=== PATIENT | male | born 1960 | race Caucasian/White ===

== ENCOUNTER 2019-05-22 05:34 | Inpatient (IN) | payer OTHER ==
[2019-05-09 13:04] LABS: HEMATOCRIT 37.7 % (42.0-52.0); HEMOGLOBIN 12.4 gm/dL (14.0-18.0); MCH 28.6 pg (26.0-34.0); MCHC 32.8 g/dL (28.0-37.0); RBC 4.33 mil/uL (4.50-6.00); RDW 14.2 % (10.5-14.5); WBC 6.1 thou/uL (4.0-11.0)
[2019-05-09 13:09] LABS: URINE BILIRUBIN NEGATIVE (Negative); URINE BLOOD NEGATIVE (Negative); URINE CLARITY CLEAR; URINE COLOR YELLOW; URINE GLUCOSE-RANDOM* NEGATIVE (Negative); URINE KETONES NEGATIVE (Negative); URINE LEUKOCYTES-REFLEX NEGATIVE (Negative); URINE NITRITE-REFLEX NEGATIVE (Negative); URINE PROTEIN (DIPSTICK) NEGATIVE (Negative); URINE SPECIFIC GRAVITY <= 1.005 (1.005-1.035); URINE UROBILINOGEN 0.2 E.U./dl (0.2-1.0)
[2019-05-09 13:14] LABS: CALCIUM 9.1 mg/dL (8.5-10.1); CREATININE 1.2 mg/dL (0.7-1.3)
[2019-05-09 13:20] LABS: PROTIME 10.4 Seconds (9.3-11.4)
--- NOTE | 2019-05-10 12:24 | EKG ---
[address] [place] [address] ELECTROCARDIOGRAM REPORT Name: DAVID BARRERA Room #: PRE IN .Janna#: [id number] Admission: Attend Phys: Porfirio Awad Discharge: Date of : 56 Report #: [id number] THIS REPORT FOR: //name// [facility] Test Date: 2019-05-09 Test Time: 13:02:25 Pat Name: DAVID BARRERA Department: Room: Gender: M Administrative Office Manager: kaylin oliva : 1960 Requested By: Porfirio Painter Order Number: [id number] MD: Uri Jackson Measurements Intervals [place] Rate: 62 P: 5 DC: 176 QRS: 12 QRSD: 78 T: 54 QT: 381 QTc: 387 Interpretive Statements Sinus rhythm Abnormal R-wave progression, early transition Nonspecific ST segment abnormalities Compared to ECG 06/13/2016 13:54:06 No significant change Electronically Signed On 05-10-2019 12:24:36 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
[~2019-05-22] VITALS: Ht 182.9 cm; Wt 68.5 kg
[~2019-05-22 05:34] MED LIST: BACLOFEN20 MG PO; CENTRUM SILVER1 EAC2 PO; FLONASE 0.05%50 MCG NASAL; HORIZANT600 MG PO; IBUPROFEN 200200 M1 PO; LASIX 20 MG TAB20 MG PO; LIORESAL 10 MG10 MG PO; LISINOPRIL20 MG PO; OMEGA 3 1,0001 EACH PO; PERCOCET PO; PROTONIX40 M1 PO; TRAMADOL 50 MG50 MG PO; VITAMIN B-12500 MC4 PO; VITAMIN C500 M2 PO; VITAMIN D31000 UNIT PO
[2019-05-22 06:30] VITALS: BP 124/69
[2019-05-22 11:00] VITALS: BP 136/86
--- NOTE | 2019-05-22 14:07 | NUR ---
58 YO TRANSFERED FROM PACU. A&OX4, IV INFILTRATED ON LEFT FA. R SHOULDER IS WITH POLAR PACK. BRACE IS INTACT. SCD'S IN PLACE. ORIENTED PT TO ROOM/CALL LIGHT. IV RESTARTED IN L FA BY MED SPA MANAGER SCOUT. DENIES PAIN AT THIS TIME AND IS SLEEPING NOW. WILL CONT POC.
[2019-05-22 17:51] VITALS: BP 148/81
[2019-05-22 19:21] VITALS: BP 123/92
[2019-05-23 01:17] VITALS: BP 107/70
--- NOTE | 2019-05-23 03:23 | NUR ---
ASSUMED CARE OF PATIENT AT SHIFT CHANGE. ASSESSMENT CHARTED. MEDICATIONS GIVEN PER MAR. PATIENT IS A&OX4, VSS AND DENIES PAIN AT THIS TIME. PATIENT UP TO BATHROOM WITH MINIMAL ASSIST. PATIENT STATED "I DON'T WANT TO TAKE THAT OXY STUFF BECAUSE I MIGHT GET SICK. I HAVE BEEN TAKING ULTRAM AND THAT WORKS FINE FOR ME". MED REC SHOWS HE DOES HAVE A HX 0F TAKING 50MG HS. PROVIDER WAS NOTIFIED. PERCOCET WAS DISCONTINUED AND TRAMADOL WAS ACTIVATED FOR PAIN. NEUROVASCULAR CHECK WAS COMPLETED. THERE WERE NO ABNORMAL FINDINGS. PATIENT'S SLING IS IN PLACE, POLAR PAC IS INTACT AND AQUACEL IS INTACT WELL. PATIENT VOICES NO OTHER NEEDS AT THIS TIME. PATIENT CALL APPROPRIATELY. WILL CONTINUE TO MONITOR AND FOLLOW PLAN OF CARE
[2019-05-23 04:58] VITALS: BP 118/71
[2019-05-23 05:34] LABS: HEMATOCRIT 31.2 % (42.0-52.0); HEMOGLOBIN 10.2 gm/dL (14.0-18.0)
[2019-05-23 05:45] LABS: POTASSIUM 4.2 mmol/L (3.5-5.1)
--- NOTE | 2019-05-23 12:25 | NUR ---
ASSESSMENT-PT LIVES AT HOME WITH HIS WHO IS A LEGAL CONSULTANT AND THEIR 15 YEAR OLD SON. THEY HAVE 2 DTRS THAT ARE IN [place] AND WILL BE HOME NEXT WEEK FOR THE HOLIDAY. PT WAS INDEPENDENT PRIOR TO ADMISSION. HE DENIES AND DC NEEDS AT THIS TIME AND SAYS HE HAS HIS FOLLOW-UP APPT ARRANGED. WILL TRANSPORT PT HOME LATER TODAY. NO DC NEEDS ANTICIPATED.
[2019-05-23 12:55] VITALS: BP 118/71
--- NOTE | 2019-05-23 14:12 | NUR ---
DC ORDERS RECEIVED. DC INSTRUCTIONS, SCRIPT AND F/U APPOINTMENT REVEIWED [facility] PT. IV REMOVED FROM L FA. VOLUNTEER ESCORTED PT TO MAIN ENTRANCE.
--- NOTE | 2019-05-29 14:54 | O ---
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 POSTOPERATIVE DIAGNOSIS: Right shoulder osteoarthritis with glenoid bone loss and high-grade partial thickness tearing and tendinopathy of the biceps tendon. PROCEDURE PERFORMED: Right total shoulder arthroplasty with inset glenoid and open biceps tenodesis. SURGEON: Porfirio Painter MD. STRATEGIC INSIGHTS LEAD: Perla Simon PA-C. ANESTHESIA: General with preoperative ultrasound-guided interscalene block. FLUIDS: 800 mL of crystalloid. ESTIMATED BLOOD LOSS: Approximately 75 mL. IMPLANTS UTILIZED: 1. DePuy Global Unite humeral stem size 14 with a 48 x 18 mm eccentric humeral head and a 135 degree size 14 proximal body. 2. Shoulder Innovations circular inline peg glenoid 24 mm x 6 mm. DESCRIPTION OF PROCEDURE: After proper identification of the patient and operative site in preoperative holding area, the operative site was signed by myself, prophylactic antibiotics given. The patient elected to receive an ultrasound-guided block after reviewing the risks, benefits, alternatives and potential complications with Anesthesia. After induction of satisfactory general anesthesia, the patient's right shoulder was examined. The patient's range of motion was limited, comparable to the preoperative assessment. Pronounced glenohumeral crepitus was noted. He was carefully positioned in the beach chair with head of bed elevated approximately 45 degrees. The right shoulder was sterilely prepped and draped in usual manner, final skin draping with Ioban. A [employer] limb positioning system was utilized throughout the entire procedure. Anterior deltopectoral approach was planned. Skin was incised sharply. Full thickness skin flaps were developed. Cephalic vein was identified and retracted laterally. Subdeltoid adhesions were spread bluntly. Gregory retractor was utilized to retract the deltoid. Pronounced tenosynovitis about the biceps tendon was noted. Tendon sheath was opened. Biceps tendon was tenodesed to the undersurface of the pectoralis major using #2 FiberWire as the [address] [address] OPERATIVE REPORT Name: DAVID BARRERA Room #: 442-P [facility] IN M.R.#: [id number] Admission: 05/22/19 Attend Phys: Porfirio Awad Discharge: 05/23/19 Date of : 56 Report #: [id number] tendon was followed proximally. Pronounced high-grade partial thickness tearing and tendinopathy was noted at the center of the bicipital groove and the rotator interval. Anterior circumflex vessels were identified, ligated and cauterized, and lesser tuberosity osteotomy was performed with a flexible osteotome. Very thickened anterior capsule was noted. Advanced degenerative changes were noted on both sides of the glenohumeral joint. Supraspinatus and infraspinatus were otherwise intact. Peripheral osteophytes were removed, 135 degree humeral head osteotomy was performed, rotator cuff remained intact. Following the humeral head cut, peripheral osteophytes were removed. This was done at matching the patient's [place] humeral anteversion of approximately 30 degrees. The best fit head measured 48 x 18 mm, which matched the preoperative templating. Humeral canal was reamed by hand up to a size 14 stem. This was then broached. Trial implant was placed and protection plate was applied. At this point, the joint was reduced and the anterior capsule was carefully released off the subscapularis with a right angle clamp. Axillary nerve was identified and protected throughout the entire procedure. Very thickened capsule was carefully released, released off the anterior glenoid as well. An anterior Bankart retractor that was lighted was placed. Joint was carefully distracted with lamina high pressure firer and the inferior capsule and labrum was carefully released directly off the glenoid while protecting the axillary nerve. The more superior aspect of the remaining labrum and biceps tendon were carefully debrided. The patient had pronounced thinning of the glenoid. Preoperative templating with the Edmodo software demonstrated the patient's inclination version and overall geometry of the glenoid. Intraoperatively with the cystic changes noted, especially inferiorly, I was concerned that a standard anchor peg glenoid or Steptech glenoid were not have sufficient bony support and therefore a shoulder innovations inline peg glenoid was utilized. Central guide pin was placed and a 24 mm glenoid was chosen, provided the best fit and conformity into this medially and posteriorly eroded glenoid pattern. After the guide pin was placed, its pin position was verified visually as well as by palpation. Central reaming ensued for a 6 mm depth glenoid. Next, the peripheral pegs were drilled. Derotation pegs were utilized and a trial was inserted. It had excellent fit and purchase within the central aspect of the glenoid. This was removed. Joint was irrigated with antibiotic irrigant. All pegs were contained as well as the periphery of the glenoid was then sent inset at least 2 mm. Thus, FloSeal was utilized. This was then removed with irrigation and suction and then cement was applied to the pegs as well as the more central cavity in the back of the glenoid. This was carefully impacted into position, held firmly in place. All the excess bone cement was removed after the cement had cured. The implant was stable. The humeral head was then placed on the humerus, this was reduced, remained well centered with good anterior, posterior translation. These were removed. Global Unite brosteotome was utilized. Four drill holes were placed within the anterior aspect of the humerus and a Global Unite stem was assembled on the back table, carefully impacted into position and had excellent fit and purchase. The inferior 2 sutures were wrapped around the stem. Next, a 48 mm x 18 mm eccentric head was impacted into position. Its [facility] [address] [place] [address] OPERATIVE REPORT Name: DAVID BARRERA Room #: 442-P [facility] IN M.R.#: [id number] Admission: 05/22/19 Attend Phys: Porfirio Awad Discharge: 05/23/19 Date of : 56 Report #: [id number] rotation was verified. Eccentricity was placed more superiorly and posteriorly. Joint was reduced. There was a satisfactory recreation of the proximal humeral anatomy and the subscapularis was repaired with four #2 FiberWires in a modified Rhett-Bertin technique and the lateral portion of the rotator interval was closed multiple times throughout the procedure, antibiotic irrigant was utilized to irrigate the wound. This was done again prior to closure of the subscapularis. 1 gram vancomycin powder was utilized, half at deep, half of it more superficial. Please note that the cephalic vein had to be ligated during the procedure for any postoperative shunt studies, this may show a diminished flow in this region. 2-0 Vicryl was used to close subcutaneous tissues after 0 Vicryl was used to close the deltopectoral interval. Final skin closure was with running Monocryl, sealed by Dermabond. A sterile Aquacel dressing was applied. The patient was placed in a sling and abduction pillow for 4 weeks postoperatively. Patient could easily be externally rotated at 45 degrees without placing any tension on the subscapularis repair. Qualified legal support assistant was utilized throughout the entire procedure to aid in patient limb positioning, visualization and retraction of the soft tissues, instrument passage, closure and sling and dressing application. <ELECTRONICALLY SIGNED> By: Porfirio Painter MD 05/29/19 1454 1004 1242 Porfirio Painter MD /nt
== END 2019-05-23 16:10 | disposition home or self-care (01) | DRG 483 ==
LOC: TBA 05:34 → 4S 05:34 → PRE 07:00 → 4S 11:09 → PRE 12:32 → ENTRNSPT 05-23 14:08 → EDTRNSPTSTS 05-23 14:10 → 4S 05-23 16:10
PROVIDERS: Physician Assistant Surgical; ADMIT Orthopaedic Surgery Sports Medicine
PROC: 0LS30ZZ Reposition Right Upper Arm Tendon, Open Approach (ICD-10-PCS; principal; 2019-05-22)
PROC: 0RRJ0JZ Replacement of Right Shoulder Joint with Synthetic Substitute, Open Approach (ICD-10-PCS; principal; 2019-05-22)
DX: M19.011 Primary osteoarthritis, right shoulder (principal); M75.21 Bicipital tendinitis, right shoulder; Z96.612 Presence of left artificial shoulder joint; M67.922 Unspecified disorder of synovium and tendon, left upper arm; M47.22 Other spondylosis with radiculopathy, cervical region; M75.51 Bursitis of right shoulder; M50.30 Other cervical disc degeneration, unspecified cervical region; Z88.0 Allergy status to penicillin; Z90.49 Acquired absence of other specified parts of digestive tract; Z82.49 Family history of ischemic heart disease and other diseases of the circulatory system; Z79.899 Other long term (current) drug therapy
CPT/HCPCS: 10102; 50010; 50101; 50172; 50386; 50417; 50697; 50733; 50935; 51320; 51751; 52001; 52138; 52256; 53000; 53078; 54118; 55430; 56521; 56524; 56525; 56526; 56530; 57095; 57103; 62110; 62900; 64039; 70005